=== PATIENT | female | born 1995 | race Caucasian/White ===

== ENCOUNTER 2019-12-22 08:00 | Inpatient (IN) ==
[2019-12-22] MEDS ORDERED: EPHEDrine 50 MG/ML VIAL IVP PRN (09:42)
[2019-12-22] MEDS ORDERED: Epidural Premix (fent/bupiv) 110 ML EP SCH (09:45)
[2019-12-22] MEDS ORDERED: *HR* FentaNYL (PF) 100 MCG/2 ML VIAL IVP PRN (09:48)
[2019-12-22] MEDS ORDERED: Ondansetron 4 MG/2 ML VIAL IVP PRN (09:48)
[2019-12-22] MEDS ORDERED: Lidocaine 1% 20 ML MDV INFILT PRN (09:48)
[2019-12-22] MEDS ORDERED: miSOPROStoL 25 MCG TABLET PO PRN (09:48)
[2019-12-22] MEDS ORDERED: Famotidine 20 MG/2 ML VIAL IVP PRN (09:48)
[2019-12-22] MEDS ORDERED: Naloxone 0.4 MG/ML INJ IVP PRN (09:48)
[2019-12-22] MEDS ORDERED: Azithromycin 500 MG in 0.9 % Sodium Chloride 250 ML IVPB PRN (09:48)
[2019-12-22] MEDS ORDERED: Metoclopramide 10 MG/2 ML VIAL IVP PRN (09:48)
[2019-12-22] MEDS ORDERED: Ringers Solution, Lactated 1,000 ML IVC SCH (10:00)
[2019-12-22 11:01] LABS: Basophils % 0.3 %; Eosinophils % 0.3 %; Hematocrit 35.7 % (35.3-44.9); Hemoglobin 11.4 g/dL (11.5-15.4); Immature Granulocytes % 0.3 % (0-4); Lymphocytes # 1.7 K/mcL (0.6-4.6); Lymphocytes % 17.7 %; Mean Corpuscular HGB Conc 31.9 g/dL (31.6-35.5); Mean Corpuscular Volume 81.3 fL (83.0-100.0); Mean Platelet Volume 12.2 fL (9.4-12.4); Monocytes # 0.8 K/mcL (0.0-1.3); Monocytes % 8.6 %; Platelet Count 198 K/mcL (140-400); Red Blood Count 4.39 M/mcL (3.82-4.97); Red Cell Distribution Width 14.7 % (11.5-14.5); Segmented Neutrophils % 72.8 %; White Blood Count 9.7 K/mcL (4.3-11.1)
[2019-12-22 11:09] LABS: Amphetamine Screen,Urine Negative ng/mL (Cutoff=1000); Barbiturate Screen,Urine Negative ng/mL (Cutoff=200); Benzodiazepines Screen,Urine Negative ng/mL (Cutoff=200); Cannabinoid Screen,Urine Negative ng/mL (Cutoff = 50); Cocaine Screen,Urine Negative ng/mL (Cutoff= 300); Opiate Screen,Urine Negative ng/mL (Cutoff=300); Phencyclidine Screen,Urine Negative ng/mL (Cutoff=25)
[2019-12-22 13:08] LABS: Protein/Creatinine Ratio,Urine 0.26 mg/mg (0.00-0.20)
[2019-12-22 14:48] LABS: Alanine Aminotransferase 15 Units/L (7-52); Aspartate Amino Transferase 20 Units/L (13-39); BUN/Creatinine Ratio 18 (6-26); Blood Urea Nitrogen 9 mg/dL (6-20); Lactate Dehydrogenase 252 Units/L (140-271); Uric Acid 3.7 mg/dL (2.3-7.6); eGFR For African Americans > 60 (> 60); eGFR For Non-African Americans > 60 (> 60)
[2019-12-22] MEDS ORDERED: Oxytocin 20 units/ LR 1000 mL 20 UNIT/1,000 ML BAG IVC SCH (20:27)
[2019-12-22] MEDS ORDERED: Benzocaine/Menthol 56 GM AEROSOL SPRAY TP PRN (20:27)
[2019-12-22] MEDS ORDERED: Ibuprofen 600 MG TABLET PO PRN (20:27)
[2019-12-22] MEDS ORDERED: Acetaminophen 325 MG TABLET PO PRN (20:27)
[2019-12-22] MEDS ORDERED: Lanolin 7 G OINT...G. TP PRN (20:27)
[2019-12-23] MEDS ORDERED: Prenatal Vit/FA 1 EACH TABLET PO SCH (09:00)
[2019-12-23 17:28] VITALS: BP 141/94
== END 2019-12-23 18:00 | disposition home or self-care (01) | DRG 560 ==
LOC: 1NENULAB 09:38 → 1NENUOBS 20:29
PROVIDERS: ADMIT Registered Nurse; ATTEND Registered Nurse